=== PATIENT | female | born 1985 | race Caucasian/White ===

== ENCOUNTER 2019-07-28 11:32 | Emergency (ER) | payer OTHER, MEDICAID ==
[~2019-07-28] VITALS: Ht 170.2 cm; Wt 74.8 kg
[2019-07-28] MEDS ORDERED: BUTALB-APAP-CA1 EACH PO (13:37)
[2019-07-28 14:38] VITALS: BP 119/84
== END 2019-07-28 14:40 | disposition home or self-care (01) ==
LOC: M.ERS 11:32
DX: G43.009 Migraine without aura, not intractable, without status migrainosus (principal); M19.90 Unspecified osteoarthritis, unspecified site; F17.210 Nicotine dependence, cigarettes, uncomplicated

== ENCOUNTER 2019-08-13 10:52 | Emergency (ER) | payer OTHER, MEDICAID ==
[~2019-08-13] VITALS: Ht 170.2 cm; Wt 73.9 kg
[~2019-08-13 10:52] MED LIST: BUTALB-APAP-CA1 EACH PO
[2019-08-13 12:10] VITALS: BP 125/70
== END 2019-08-13 12:10 | disposition home or self-care (01) ==
LOC: M.ERS 10:52
DX: G43.909 Migraine, unspecified, not intractable, without status migrainosus (principal); M19.90 Unspecified osteoarthritis, unspecified site

== ENCOUNTER 2019-08-18 10:26 | Emergency (ER) | payer OTHER, MEDICAID ==
[~2019-08-18] VITALS: Ht 170.2 cm; Wt 73.9 kg
[2019-08-18] MEDS ORDERED: NAPROSYN500 MG PO (11:50)
[2019-08-18] MEDS ORDERED: NORCO 5-325 TA1 EAC1 PO (11:50)
[2019-08-18] MEDS ORDERED: MEDROLDOSEPACK PO (11:50)
[2019-08-18 12:03] VITALS: BP 132/80
== END 2019-08-18 12:04 | disposition home or self-care (01) ==
LOC: M.ERS 10:26
DX: M54.12 Radiculopathy, cervical region (principal); G89.29 Other chronic pain; M19.90 Unspecified osteoarthritis, unspecified site; G43.909 Migraine, unspecified, not intractable, without status migrainosus; F17.200 Nicotine dependence, unspecified, uncomplicated; Z85.42 Personal history of malignant neoplasm of other parts of uterus; Z90.710 Acquired absence of both cervix and uterus

== ENCOUNTER 2019-08-25 11:39 | Emergency (ER) | payer OTHER, MEDICAID ==
[~2019-08-25] VITALS: Ht 170.2 cm; Wt 74.8 kg
[~2019-08-25 11:39] MED LIST changes: +MEDROLDOSEPACK PO; +NAPROSYN500 MG PO; +NORCO 5-325 TA1 EAC1 PO
[2019-08-25] MEDS ORDERED: MOBIC15 MG PO (12:03)
[2019-08-25] MEDS ORDERED: TRAMADOL 50 MG50 MG PO (12:03)
[2019-08-25 12:38] VITALS: BP 147/87
== END 2019-08-25 12:40 | disposition home or self-care (01) ==
LOC: M.ERS 11:39
DX: M54.2 Cervicalgia (principal); M19.90 Unspecified osteoarthritis, unspecified site; G43.909 Migraine, unspecified, not intractable, without status migrainosus; F17.210 Nicotine dependence, cigarettes, uncomplicated

== ENCOUNTER 2019-10-08 13:06 | Emergency (ER) | payer OTHER, MEDICAID ==
[~2019-10-08] VITALS: Ht 170.2 cm; Wt 74.8 kg
[~2019-10-08 13:06] MED LIST changes: +MOBIC15 MG PO; +TRAMADOL 50 MG50 MG PO
[2019-10-08] MEDS ORDERED: BUTALB-APAP-CA1 EACH PO (14:27)
[2019-10-08 15:00] VITALS: BP 125/70
== END 2019-10-08 15:01 | disposition home or self-care (01) ==
LOC: M.ERS 13:06
DX: G43.909 Migraine, unspecified, not intractable, without status migrainosus (principal); M19.90 Unspecified osteoarthritis, unspecified site; Z88.6 Allergy status to analgesic agent

== ENCOUNTER 2019-11-04 10:05 | Emergency (ER) | payer OTHER, MEDICAID ==
[~2019-11-04] VITALS: Ht 170.2 cm; Wt 74.8 kg
[2019-11-04] MEDS ORDERED: FLEXERIL PO (10:24)
[2019-11-04 10:29] VITALS: BP 121/64
== END 2019-11-04 10:29 | disposition home or self-care (01) ==
LOC: M.ERS 10:05
DX: M54.5 Low back pain (principal); M79.18 Myalgia, other site; M19.90 Unspecified osteoarthritis, unspecified site; G43.909 Migraine, unspecified, not intractable, without status migrainosus; Z90.711 Acquired absence of uterus with remaining cervical stump; Z88.6 Allergy status to analgesic agent; Z85.42 Personal history of malignant neoplasm of other parts of uterus

== ENCOUNTER 2019-12-02 18:15 | Emergency (ER) | payer OTHER, MEDICAID ==
[~2019-12-02] VITALS: Ht 170.2 cm; Wt 72.6 kg
[~2019-12-02 18:15] MED LIST changes: +FLEXERIL PO
[2019-12-02 19:04] VITALS: BP 140/70
== END 2019-12-02 19:04 | disposition home or self-care (01) ==
LOC: M.ERS 18:15
DX: G43.909 Migraine, unspecified, not intractable, without status migrainosus (principal); M19.90 Unspecified osteoarthritis, unspecified site; Z85.42 Personal history of malignant neoplasm of other parts of uterus; Z88.6 Allergy status to analgesic agent

== ENCOUNTER 2019-12-15 18:07 | Emergency (ER) | payer OTHER, MEDICAID ==
[~2019-12-15] VITALS: Ht 170.2 cm; Wt 74.8 kg
[2019-12-15] MEDS ORDERED: BUTALB-APAP-CA1 EACH PO (18:39)
[2019-12-15 18:50] VITALS: BP 125/89
== END 2019-12-15 18:51 | disposition home or self-care (01) ==
LOC: M.ERS 18:07
DX: G43.909 Migraine, unspecified, not intractable, without status migrainosus (principal); M19.90 Unspecified osteoarthritis, unspecified site; Z85.42 Personal history of malignant neoplasm of other parts of uterus; Z90.711 Acquired absence of uterus with remaining cervical stump; Z88.6 Allergy status to analgesic agent

== ENCOUNTER 2019-12-22 17:48 | Emergency (ER) | payer OTHER, MEDICAID ==
[~2019-12-22] VITALS: Ht 170.2 cm; Wt 74.8 kg
[2019-12-22 18:36] VITALS: BP 128/70
== END 2019-12-22 18:36 | disposition home or self-care (01) ==
LOC: M.ERS 17:48
DX: T23.101A Burn of first degree of right hand, unspecified site, initial encounter (principal); G43.909 Migraine, unspecified, not intractable, without status migrainosus; M19.90 Unspecified osteoarthritis, unspecified site; Z90.711 Acquired absence of uterus with remaining cervical stump; Z85.42 Personal history of malignant neoplasm of other parts of uterus; Z88.6 Allergy status to analgesic agent; X10.2XXA Contact with fats and cooking oils, initial encounter; Y93.G3 Activity, cooking and baking; Y92.89 Other specified places as the place of occurrence of the external cause; Y99.8 Other external cause status

== ENCOUNTER 2020-02-22 16:54 | Emergency (ER) | payer MEDICAID ==
[~2020-02-22] VITALS: Ht 170.2 cm; Wt 72.6 kg
[2020-02-22] MEDS ORDERED: BUTALB-APAP-CA1 EACH PO (17:33)
[2020-02-22 18:02] VITALS: BP 110/68
== END 2020-02-22 18:02 | disposition home or self-care (01) ==
LOC: M.ERS 16:54
DX: G43.009 Migraine without aura, not intractable, without status migrainosus (principal); M19.90 Unspecified osteoarthritis, unspecified site; F17.210 Nicotine dependence, cigarettes, uncomplicated; Z88.6 Allergy status to analgesic agent; Z85.42 Personal history of malignant neoplasm of other parts of uterus; Z90.711 Acquired absence of uterus with remaining cervical stump

== ENCOUNTER 2020-04-05 12:39 | Emergency (ER) | payer OTHER, MEDICAID ==
[~2020-04-05] VITALS: Ht 170.2 cm; Wt 73.9 kg
[2020-04-05] MEDS ORDERED: BUTALB-APAP-CA1 EACH PO (13:09)
[2020-04-05 13:25] VITALS: BP 128/72
== END 2020-04-05 13:26 | disposition home or self-care (01) ==
LOC: M.ERS 12:39
DX: G43.909 Migraine, unspecified, not intractable, without status migrainosus (principal); M19.90 Unspecified osteoarthritis, unspecified site; F17.210 Nicotine dependence, cigarettes, uncomplicated; Z90.711 Acquired absence of uterus with remaining cervical stump; Z85.42 Personal history of malignant neoplasm of other parts of uterus; Z88.6 Allergy status to analgesic agent

== ENCOUNTER 2020-04-09 23:00 | Emergency (ER) | payer OTHER, MEDICAID ==
[~2020-04-09] VITALS: Ht 170.2 cm; Wt 72.6 kg
[2020-04-10] MEDS ORDERED: HYDROCODON-ACE1 EAC8 PO (00:24)
[2020-04-10] MEDS ORDERED: FLEXERIL PO (00:24)
[2020-04-10 00:41] VITALS: BP 103/69
== END 2020-04-10 00:43 | disposition home or self-care (01) ==
LOC: M.ERS 23:00
DX: M54.5 Low back pain (principal); M79.18 Myalgia, other site; M19.90 Unspecified osteoarthritis, unspecified site; G43.909 Migraine, unspecified, not intractable, without status migrainosus; Z90.711 Acquired absence of uterus with remaining cervical stump; Z88.6 Allergy status to analgesic agent; Z85.41 Personal history of malignant neoplasm of cervix uteri

== ENCOUNTER 2020-04-22 13:59 | Emergency (ER) | payer OTHER, MEDICAID ==
[~2020-04-22] VITALS: Ht 167.6 cm; Wt 74.8 kg
[~2020-04-22 13:59] MED LIST changes: +HYDROCODON-ACE1 EAC8 PO
[2020-04-22 15:41] VITALS: BP 119/84
== END 2020-04-22 15:42 | disposition home or self-care (01) ==
LOC: M.ERS 13:59
DX: G43.909 Migraine, unspecified, not intractable, without status migrainosus (principal); M19.90 Unspecified osteoarthritis, unspecified site; Z88.6 Allergy status to analgesic agent

== ENCOUNTER 2020-05-02 03:31 | Emergency (ER) | payer OTHER, MEDICAID ==
[~2020-05-02] VITALS: Ht 170.2 cm; Wt 77.1 kg
[2020-05-02 03:37] VITALS: BP 141/85
[2020-05-02] MEDS ORDERED: TOPAMAX100 MG PO (03:39)
[2020-05-02] MEDS ORDERED: DESYREL150 MG PO (03:39)
[2020-05-02] MEDS ORDERED: NORCO 5-325 TA1 EAC2 PO (03:51)
[2020-05-02] MEDS ORDERED: AMOXICILLIN 50500 MG PO (03:51)
[2020-05-02] MEDS ORDERED: CORTISPORIN OTI10 M2 OTIC (03:51)
== END 2020-05-02 03:57 | disposition home or self-care (01) ==
LOC: M.ERS 03:31
DX: H66.92 Otitis media, unspecified, left ear (principal); M19.90 Unspecified osteoarthritis, unspecified site; G43.909 Migraine, unspecified, not intractable, without status migrainosus; Z88.6 Allergy status to analgesic agent

== ENCOUNTER 2020-07-21 19:49 | Emergency (ER) | payer OTHER, MEDICAID ==
[~2020-07-21] VITALS: Ht 170.2 cm; Wt 81.7 kg
[~2020-07-21 19:49] MED LIST changes: +AMOXICILLIN 50500 MG PO; +CORTISPORIN OTI10 M2 OTIC; +DESYREL150 MG PO; +NORCO 5-325 TA1 EAC2 PO; +TOPAMAX100 MG PO
[2020-07-21] MEDS ORDERED: TORADOL 10 MG T10 MG PO (21:54)
[2020-07-21] MEDS ORDERED: NORFLEX100 MG PO (21:54)
[2020-07-21 22:31] VITALS: BP 157/82
[2020-07-22] MEDS ORDERED: HYDROCODON-ACE1 EAC7 PO (17:57)
== END 2020-07-21 22:31 | disposition home or self-care (01) ==
LOC: M.ERS 19:49
DX: S46.811A Strain of other muscles, fascia and tendons at shoulder and upper arm level, right arm, initial encounter (principal); G43.909 Migraine, unspecified, not intractable, without status migrainosus; M19.90 Unspecified osteoarthritis, unspecified site; Z88.6 Allergy status to analgesic agent; X50.0XXA Overexertion from strenuous movement or load, initial encounter; Y93.89 Activity, other specified; Y92.89 Other specified places as the place of occurrence of the external cause; Y99.9 Unspecified external cause status

== ENCOUNTER 2020-10-09 06:01 | Emergency (ER) | payer OTHER, MEDICAID ==
[~2020-10-09] VITALS: Ht 170.2 cm; Wt 81.7 kg
[~2020-10-09 06:01] MED LIST changes: +HYDROCODON-ACE1 EAC7 PO; +NORFLEX100 MG PO; +TORADOL 10 MG T10 MG PO
[2020-10-09 06:54] LABS: INFLUENZA A ANTIGEN Negative (Negative); INFLUENZA B ANTIGEN Negative (Negative)
[2020-10-09] MEDS ORDERED: PREDNISONE50 MG PO (07:10)
[2020-10-09] MEDS ORDERED: AUGMENTIN 500-1 EACH PO (07:10)
[2020-10-09] MEDS ORDERED: MUCUS-ER MAX1200 MG PO (07:10)
[2020-10-09] MEDS ORDERED: PROAIR HFA8.5 GM INH (07:12)
[2020-10-09 07:40] VITALS: BP 131/74
== END 2020-10-09 07:41 | disposition home or self-care (01) ==
LOC: M.ERS 06:01
PROVIDERS: Personal Emergency Response Attendant
DX: J40 Bronchitis, not specified as acute or chronic (principal); Z20.822 Contact with and (suspected) exposure to COVID-19; M19.90 Unspecified osteoarthritis, unspecified site; G43.909 Migraine, unspecified, not intractable, without status migrainosus; Z85.42 Personal history of malignant neoplasm of other parts of uterus; Z88.6 Allergy status to analgesic agent; Z90.711 Acquired absence of uterus with remaining cervical stump

== ENCOUNTER 2020-10-22 07:44 | Emergency (ER) | payer OTHER, MEDICAID ==
[~2020-10-22] VITALS: Ht 170.2 cm; Wt 81.7 kg
[~2020-10-22 07:44] MED LIST changes: +AUGMENTIN 500-1 EACH PO; +MUCUS-ER MAX1200 MG PO; +PREDNISONE50 MG PO; +PROAIR HFA8.5 GM INH
[2020-10-22] MEDS ORDERED: HYDROCODON-ACE1 EAC7 PO (08:59)
[2020-10-22] MEDS ORDERED: FLEXERIL PO (08:59)
[2020-10-22 09:09] VITALS: BP 114/64
== END 2020-10-22 09:10 | disposition home or self-care (01) ==
LOC: M.ERS 07:44
DX: S30.0XXA Contusion of lower back and pelvis, initial encounter (principal); S20.229A Contusion of unspecified back wall of thorax, initial encounter; M19.90 Unspecified osteoarthritis, unspecified site; G43.909 Migraine, unspecified, not intractable, without status migrainosus; Z90.711 Acquired absence of uterus with remaining cervical stump; Z85.42 Personal history of malignant neoplasm of other parts of uterus; Z88.6 Allergy status to analgesic agent; W01.0XXA Fall on same level from slipping, tripping and stumbling without subsequent striking against object, initial encounter; Y93.89 Activity, other specified; Y92.89 Other specified places as the place of occurrence of the external cause; Y99.8 Other external cause status

== ENCOUNTER 2020-11-14 09:49 | Emergency (ER) | payer OTHER, MEDICAID ==
[~2020-11-14] VITALS: Ht 170.2 cm; Wt 81.7 kg
[2020-11-14 10:42] LABS: URINE BILIRUBIN NEGATIVE (Negative); URINE BLOOD NEGATIVE (Negative); URINE CLARITY CLEAR; URINE COLOR YELLOW; URINE GLUCOSE-RANDOM NEGATIVE (Negative); URINE KETONES NEGATIVE (Negative); URINE LEUKOCYTES-REFLEX NEGATIVE (Negative); URINE NITRITE-REFLEX NEGATIVE (Negative); URINE PROTEIN NEGATIVE (Negative)
[2020-11-14] MEDS ORDERED: APAP W/CODEINE1 TA2 PO (10:47)
[2020-11-14] MEDS ORDERED: NAPROSYN500 MG PO (10:47)
[2020-11-14] MEDS ORDERED: PREDNISONE 20 M20 MG PO (10:47)
[2020-11-14 10:59] VITALS: BP 118/72
== END 2020-11-14 11:00 | disposition home or self-care (01) ==
LOC: M.ERS 09:49
PROVIDERS: Physician Assistant
DX: S30.0XXA Contusion of lower back and pelvis, initial encounter (principal); G43.909 Migraine, unspecified, not intractable, without status migrainosus; M47.812 Spondylosis without myelopathy or radiculopathy, cervical region; M47.816 Spondylosis without myelopathy or radiculopathy, lumbar region; Z96.22 Myringotomy tube(s) status; Z90.711 Acquired absence of uterus with remaining cervical stump; Z85.42 Personal history of malignant neoplasm of other parts of uterus; Z79.899 Other long term (current) drug therapy; Z88.8 Allergy status to other drugs, medicaments and biological substances; W01.0XXA Fall on same level from slipping, tripping and stumbling without subsequent striking against object, initial encounter; Y93.89 Activity, other specified; Y92.89 Other specified places as the place of occurrence of the external cause; Y99.8 Other external cause status

== ENCOUNTER 2020-11-19 05:34 | Emergency (ER) | payer OTHER, MEDICAID ==
[~2020-11-19] VITALS: Ht 170.2 cm; Wt 81.7 kg
[~2020-11-19 05:34] MED LIST changes: +APAP W/CODEINE1 TA2 PO; +PREDNISONE 20 M20 MG PO
[2020-11-19 06:08] LABS: HEMATOCRIT 42.2 % (37.0-47.0); HEMOGLOBIN 13.9 gm/dL (12.0-15.0); MCH 31.2 pg (26.0-34.0); MCHC 32.8 g/dL (28.0-37.0); MCV 95.1 fL (80.0-100.0); MPV 9.4 fl. (7.2-11.1); NUCLEATED RBCS 0 /100WBC; PLATELET COUNT* 235 thou/uL (150-400); RBC 4.44 mil/uL (4.20-5.00); RDW-CV 13.5 % (10.5-14.5); WBC 16.4 thou/uL (4.0-11.0)
[2020-11-19 06:16] LABS: CALCIUM 8.5 mg/dL (8.5-10.1); CREATININE 0.9 mg/dL (0.6-1.3); POTASSIUM 4.4 mmol/L (3.5-5.1)
[2020-11-19 06:20] LABS: ALBUMIN 3.6 g/dL (3.4-5.0); MAGNESIUM 2.1 mg/dL (1.8-2.4); TOTAL BILIRUBIN 0.3 mg/dL (<0.1-1.0); TOTAL PROTEIN 6.9 g/dL (6.4-8.2)
[2020-11-19 08:02] LABS: ABSOLUTE MONOCYTES 0.5 thou/uL (0.0-1.2); ABSOLUTE NEUTROPHILS 14.9 thou/uL (1.6-8.1); PLATELET ESTIMATE ADEQUATE
[2020-11-19 08:13] LABS: URINE BILIRUBIN NEGATIVE (Negative); URINE BLOOD TRACE (Negative); URINE CLARITY CLEAR; URINE COLOR YELLOW; URINE GLUCOSE-RANDOM NEGATIVE (Negative); URINE KETONES NEGATIVE (Negative); URINE LEUKOCYTES-REFLEX NEGATIVE (Negative); URINE NITRITE-REFLEX NEGATIVE (Negative); URINE PROTEIN NEGATIVE (Negative); URINE UROBILINOGEN 0.2 E.U./dl (0.2-1.0)
[2020-11-19 08:20] VITALS: BP 108/66
[2020-11-19] MEDS ORDERED: CIPROFLOXACIN500 M1 PO (08:20)
== END 2020-11-19 08:20 | disposition home or self-care (01) ==
LOC: M.ERS 05:34
PROVIDERS: Emergency Medicine
DX: R19.7 Diarrhea, unspecified (principal); R10.31 Right lower quadrant pain; R10.32 Left lower quadrant pain; G43.909 Migraine, unspecified, not intractable, without status migrainosus; Z88.6 Allergy status to analgesic agent; Z79.899 Other long term (current) drug therapy

== ENCOUNTER 2020-12-13 17:30 | Emergency (ER) | payer OTHER, MEDICAID ==
[~2020-12-13] VITALS: Ht 170.2 cm; Wt 77.1 kg
[~2020-12-13 17:30] MED LIST changes: +CIPROFLOXACIN500 M1 PO
[2020-12-13] MEDS ORDERED: GABAPENTIN800 M1 PO (17:44)
[2020-12-13 19:27] VITALS: BP 102/64
== END 2020-12-13 19:27 | disposition home or self-care (01) ==
LOC: M.ERS 17:30
DX: M25.561 Pain in right knee (principal); G43.909 Migraine, unspecified, not intractable, without status migrainosus; M19.90 Unspecified osteoarthritis, unspecified site; Z85.42 Personal history of malignant neoplasm of other parts of uterus; Z88.6 Allergy status to analgesic agent

== ENCOUNTER 2020-12-28 20:55 | Emergency (ER) | payer OTHER, MEDICAID ==
[~2020-12-28] VITALS: Ht 170.2 cm; Wt 74.8 kg
[~2020-12-28 20:55] MED LIST changes: +GABAPENTIN800 M1 PO
[2020-12-28] MEDS ORDERED: TORADOL 10 MG T10 MG PO (22:34)
[2020-12-28] MEDS ORDERED: NORFLEX100 MG PO (22:34)
[2020-12-28 22:54] VITALS: BP 97/36
== END 2020-12-28 22:54 | disposition home or self-care (01) ==
LOC: M.ERS 20:55
DX: M43.6 Torticollis (principal); M19.90 Unspecified osteoarthritis, unspecified site; G43.909 Migraine, unspecified, not intractable, without status migrainosus; F17.210 Nicotine dependence, cigarettes, uncomplicated; Z85.42 Personal history of malignant neoplasm of other parts of uterus; Z88.6 Allergy status to analgesic agent

== ENCOUNTER 2021-01-03 12:42 | Emergency (ER) | payer OTHER, MEDICAID ==
[~2021-01-03] VITALS: Ht 170.2 cm; Wt 74.8 kg
[2021-01-03] MEDS ORDERED: VISTARIL 25 MG25 M1 PO (15:15)
[2021-01-03 15:32] VITALS: BP 110/57
== END 2021-01-03 15:33 | disposition home or self-care (01) ==
LOC: M.ERS 12:42
DX: F41.9 Anxiety disorder, unspecified (principal); M19.90 Unspecified osteoarthritis, unspecified site; G43.909 Migraine, unspecified, not intractable, without status migrainosus; Z85.42 Personal history of malignant neoplasm of other parts of uterus; Z88.6 Allergy status to analgesic agent; Z90.711 Acquired absence of uterus with remaining cervical stump

== ENCOUNTER 2021-01-14 10:02 | Emergency (ER) | payer OTHER, MEDICAID ==
[~2021-01-14] VITALS: Ht 170.2 cm; Wt 74.8 kg
[~2021-01-14 10:02] MED LIST changes: +VISTARIL 25 MG25 M1 PO
[2021-01-14 10:37] LABS: HEMATOCRIT 40.4 % (37.0-47.0); HEMOGLOBIN 13.9 gm/dL (12.0-15.0); MCH 31.7 pg (26.0-34.0); MCHC 34.4 g/dL (28.0-37.0); MCV 92.1 fL (80.0-100.0); MPV 8.5 fl. (7.2-11.1); NUCLEATED RBCS 0 /100WBC; PLATELET COUNT* 303 thou/uL (150-400); RBC 4.39 mil/uL (4.20-5.00); RDW-CV 13.4 % (10.5-14.5); WBC 14.9 thou/uL (4.0-11.0)
[2021-01-14 10:45] LABS: CALCIUM 8.8 mg/dL (8.5-10.1); CREATININE 0.9 mg/dL (0.6-1.3); POTASSIUM 3.1 mmol/L (3.5-5.1)
[2021-01-14 10:50] LABS: ALBUMIN 3.6 g/dL (3.4-5.0); TOTAL BILIRUBIN 0.5 mg/dL (<0.1-1.0); TOTAL PROTEIN 7.1 g/dL (6.4-8.2)
[2021-01-14 11:02] LABS: ABSOLUTE LYMPHOCYTES 1.6 thou/uL (0.8-5.3); ABSOLUTE MONOCYTES 0.4 thou/uL (0.0-1.2); ABSOLUTE NEUTROPHILS 12.8 thou/uL (1.6-8.1); PLATELET ESTIMATE ADEQUATE
[2021-01-14 11:03] LABS: ANISOCYTOSIS 1+; POIKILOCYTOSIS 1+
[2021-01-14 12:21] LABS: URINE BLOOD 3+ (Negative); URINE CLARITY SL CLOUDY; URINE COLOR YELLOW; URINE GLUCOSE-RANDOM NEGATIVE (Negative); URINE KETONES 2+ (Negative); URINE LEUKOCYTES-REFLEX TRACE (Negative); URINE NITRITE-REFLEX NEGATIVE (Negative); URINE PROTEIN TRACE (Negative); URINE UROBILINOGEN 0.2 E.U./dl (0.2-1.0)
[2021-01-14] MEDS ORDERED: ONDANSETRON HCL4 M2 PO (12:22)
[2021-01-14 12:25] LABS: ICTOTEST (BILI CONFIRMATORY) Negative (Negative); URINE BILIRUBIN 1+ (Negative)
[2021-01-14 12:34] LABS: CASTS None Seen /LPF (None Seen); CRYSTALS None Seen /LPF (None Seen); MUCUS >6 Heavy strn/LPF (None Seen); SQUAMOUS 0-3 Few /LPF (0-3); URINE RBC 3-10 Few /HPF (0-2); URINE WBC-REFLEX 0-5 Rare /HPF (0-5)
[2021-01-14 12:43] VITALS: BP 98/65
--- NOTE | 2021-01-14 16:40 | EKG ---
[place] [address] ELECTROCARDIOGRAM REPORT Name: BILLIE RAMOS Room: [facility]#: [id number] Admission: 01/14/21 Attend Phys: Discharge: 01/14/21 Date of : 87 Date of Service: 01/14/21 1045 Report #: [id number] THIS REPORT FOR: //name// [facility] ED Test Date: 2021-01-14 Test Time: 10:45:48 Pat Name: BILLIE RAMOS Department: Room: Gender: F [employer]: PAN : 1985 Requested By: Violeta Brown Order Number: [id number] MD: Saurabh Olivares Measurements Intervals [place] Rate: 61 P: 36 GA: 161 QRS: 64 QRSD: 90 T: 55 QT: 454 QTc: 458 Interpretive Statements Sinus rhythm No previous ECG available for comparison Electronically Signed On 01-14-2021 16:39:59 CDT by Saurabh Olivares [email or web address] <ELECTRONICALLY SIGNED> By: Saurabh Olivares MD, [facility] 01/14/21 1639 1045 1045 Saurabh Olivares MD, FAC /EPI
== END 2021-01-14 12:44 | disposition home or self-care (01) ==
LOC: M.ERS 10:02
PROVIDERS: Nurse Practitioner Family
DX: R11.2 Nausea with vomiting, unspecified (principal); M19.90 Unspecified osteoarthritis, unspecified site; G43.909 Migraine, unspecified, not intractable, without status migrainosus; F17.210 Nicotine dependence, cigarettes, uncomplicated; Z85.42 Personal history of malignant neoplasm of other parts of uterus; Z88.6 Allergy status to analgesic agent; Z79.899 Other long term (current) drug therapy

== ENCOUNTER 2021-04-08 16:22 | Emergency (ER) | payer OTHER, MEDICAID ==
[~2021-04-08] VITALS: Ht 170.2 cm; Wt 74.8 kg
[~2021-04-08 16:22] MED LIST changes: +ONDANSETRON HCL4 M2 PO
[2021-04-08] MEDS ORDERED: HYDROCODON-ACE1 EAC7 PO (16:47)
[2021-04-08] MEDS ORDERED: MEDROLDOSEPACK PO (16:47)
[2021-04-08 17:01] VITALS: BP 129/80
== END 2021-04-08 17:01 | disposition home or self-care (01) ==
LOC: M.ERS 16:22
DX: G89.29 Other chronic pain (principal); M54.5 Low back pain; M19.90 Unspecified osteoarthritis, unspecified site; G43.909 Migraine, unspecified, not intractable, without status migrainosus; Z90.711 Acquired absence of uterus with remaining cervical stump; Z79.891 Long term (current) use of opiate analgesic; Z79.1 Long term (current) use of non-steroidal anti-inflammatories (NSAID); Z79.899 Other long term (current) drug therapy; Z88.6 Allergy status to analgesic agent

== ENCOUNTER 2021-04-18 09:25 | Emergency (ER) | payer OTHER, MEDICAID ==
[~2021-04-18] VITALS: Ht 170.2 cm; Wt 72.6 kg
[2021-04-18 09:35] VITALS: BP 112/68
[2021-04-18] MEDS ORDERED: ZPAK PO (10:44)
[2021-04-18] MEDS ORDERED: MEDROLDOSEPACK PO (10:44)
== END 2021-04-18 10:51 | disposition home or self-care (01) ==
LOC: M.ERS 09:25
DX: J20.9 Acute bronchitis, unspecified (principal); G43.909 Migraine, unspecified, not intractable, without status migrainosus; Z88.6 Allergy status to analgesic agent

== ENCOUNTER 2021-04-21 19:40 | Emergency (ER) | payer OTHER, MEDICAID ==
[~2021-04-21] VITALS: Ht 170.2 cm; Wt 72.6 kg
[~2021-04-21 19:40] MED LIST changes: +ZPAK PO
[2021-04-21 20:34] LABS: ABSOLUTE BASOPHILS 0.1 thou/uL (0.0-0.2); ABSOLUTE EOSINOPHILS 0.1 thou/uL (0.0-0.7); ABSOLUTE LYMPHOCYTES 3.2 thou/uL (0.8-5.3); ABSOLUTE MONOCYTES 0.9 thou/uL (0.0-1.2); ABSOLUTE NEUTROPHILS 7.8 thou/uL (1.6-8.1); BASOPHILS 0.7 %; EOSINOPHILS 1.1 %; HEMATOCRIT 36.2 % (37.0-47.0); HEMOGLOBIN 12.1 gm/dL (12.0-15.0); LYMPHOCYTES 26.3 %; MCH 31.2 pg (26.0-34.0); MCHC 33.5 g/dL (28.0-37.0); MCV 93.3 fL (80.0-100.0); MONOCYTES 7.2 %; MPV 8.8 fl. (7.2-11.1); NUCLEATED RBCS 0 /100WBC; PLATELET COUNT* 229 thou/uL (150-400); POLYS 64.7 %; RBC 3.88 mil/uL (4.20-5.00); RDW-CV 13.6 % (10.5-14.5)
[2021-04-21 20:42] LABS: CALCIUM 8.4 mg/dL (8.5-10.1); CREATININE 0.9 mg/dL (0.6-1.3); POTASSIUM 3.2 mmol/L (3.5-5.1)
[2021-04-21] MEDS ORDERED: COMBIVENT RESPIM4 GM IH (21:48)
[2021-04-21] MEDS ORDERED: ADVAIR 250-501 EACH INH (22:06)
[2021-04-21 22:14] VITALS: BP 115/70
--- NOTE | 2021-04-22 11:35 | EKG ---
[place] [address] ELECTROCARDIOGRAM REPORT Name: BILLIE RAMOS JACOB Room: [facility]#: [id number] Admission: 04/21/21 Attend Phys: Discharge: 04/21/21 Date of : 87 Date of Service: 04/21/211945 Report #: [id number] THIS REPORT FOR: //name// [facility] ED Test Date: 2021-04-21 Test Time: 19:46:18 Pat Name: BILLIE RAMOS Department: Room: Gender: F [employer] Maker: : 1985 Requested By: Violeta Brown Order Number: [id number] MD: Benjie Gomez Measurements Intervals [place] Rate: 77 P: 75 PA: 196 QRS: 74 QRSD: 89 T: 67 QT: 377 QTc: 427 Interpretive Statements Sinus rhythm Compared to ECG 01/14/2021 10:45:48 No significant changes Electronically Signed On 04-22-2021 11:34:58 CDT by Benjie Gomez [email or web address] <ELECTRONICALLY SIGNED> By: Benjie Gomez MD, FAC 04/22/21 1134 45 45 Benjie Gomez MD, [facility] /EPI
== END 2021-04-21 22:15 | disposition home or self-care (01) ==
LOC: M.ERS 19:40
PROVIDERS: Nurse Practitioner Family
DX: B34.9 Viral infection, unspecified (principal); Z20.822 Contact with and (suspected) exposure to COVID-19; J20.9 Acute bronchitis, unspecified; M19.90 Unspecified osteoarthritis, unspecified site; G43.909 Migraine, unspecified, not intractable, without status migrainosus; Z90.711 Acquired absence of uterus with remaining cervical stump; Z79.899 Other long term (current) drug therapy; Z88.5 Allergy status to narcotic agent

== ENCOUNTER 2021-05-13 13:53 | Emergency (ER) | payer OTHER, MEDICAID ==
[~2021-05-13] VITALS: Ht 170.2 cm; Wt 70.3 kg
[~2021-05-13 13:53] MED LIST changes: +ADVAIR 250-501 EACH INH; +COMBIVENT RESPIM4 GM IH
[2021-05-13] MEDS ORDERED: CEPHALEXIN500 MG PO (14:54)
[2021-05-13 15:05] VITALS: BP 125/74
== END 2021-05-13 15:06 | disposition home or self-care (01) ==
LOC: M.ERS 13:53
DX: S61.212A Laceration without foreign body of right middle finger without damage to nail, initial encounter (principal); M47.812 Spondylosis without myelopathy or radiculopathy, cervical region; M47.816 Spondylosis without myelopathy or radiculopathy, lumbar region; G43.909 Migraine, unspecified, not intractable, without status migrainosus; Z85.42 Personal history of malignant neoplasm of other parts of uterus; Z85.89 Personal history of malignant neoplasm of other organs and systems; Z79.899 Other long term (current) drug therapy; Z79.2 Long term (current) use of antibiotics; Z88.8 Allergy status to other drugs, medicaments and biological substances; W26.0XXA Contact with knife, initial encounter; Y93.89 Activity, other specified; Y92.89 Other specified places as the place of occurrence of the external cause; Y99.8 Other external cause status

== ENCOUNTER 2021-05-23 09:38 | Emergency (ER) | payer OTHER, MEDICAID ==
[~2021-05-23] VITALS: Ht 170.2 cm; Wt 72.6 kg
[~2021-05-23 09:38] MED LIST changes: +CEPHALEXIN500 MG PO
[2021-05-23 09:48] VITALS: BP 108/65
[2021-05-23] MEDS ORDERED: DOXYCYCLINE 10100 M2 PO (10:20)
== END 2021-05-23 10:28 | disposition home or self-care (01) ==
LOC: M.ERS 09:38
DX: S61.212D Laceration without foreign body of right middle finger without damage to nail, subsequent encounter (principal); M19.90 Unspecified osteoarthritis, unspecified site; G43.909 Migraine, unspecified, not intractable, without status migrainosus; Z48.02 Encounter for removal of sutures; Z79.899 Other long term (current) drug therapy; Z88.5 Allergy status to narcotic agent; X58.XXXD Exposure to other specified factors, subsequent encounter

== ENCOUNTER 2021-09-08 14:41 | Emergency (ER) | payer OTHER, MEDICAID ==
[~2021-09-08] VITALS: Ht 170.2 cm; Wt 68.0 kg
[~2021-09-08 14:41] MED LIST changes: +DOXYCYCLINE 10100 M2 PO
[2021-09-08 15:05] LABS: ABSOLUTE EOSINOPHILS 0.1 thou/uL (0.0-0.7); ABSOLUTE LYMPHOCYTES 2.2 thou/uL (0.8-5.3); ABSOLUTE MONOCYTES 0.4 thou/uL (0.0-1.2); ABSOLUTE NEUTROPHILS 5.5 thou/uL (1.6-8.1); BASOPHILS 0.5 %; EOSINOPHILS 0.9 %; HEMATOCRIT 39.5 % (37.0-47.0); HEMOGLOBIN 13.1 gm/dL (12.0-15.0); LYMPHOCYTES 26.8 %; MCH 31.1 pg (26.0-34.0); MCHC 33.2 g/dL (28.0-37.0); MCV 93.5 fL (80.0-100.0); MONOCYTES 5.4 %; MPV 8.6 fl. (7.2-11.1); NUCLEATED RBCS 0 /100WBC; PLATELET COUNT* 238 thou/uL (150-400); POLYS 66.4 %; RBC 4.22 mil/uL (4.20-5.00); RDW-CV 13.4 % (10.5-14.5); WBC 8.2 thou/uL (4.0-11.0)
--- NOTE | 2021-09-08 15:08 | EKG ---
[place] [address] ELECTROCARDIOGRAM REPORT Name: BILLIE RAMOS JACOB Room: [facility]#: [id number] Admission: 09/08/21 Attend Phys: Discharge: Date of : 87 Date of Service: 09/08/21 1451 Report #: [id number] THIS REPORT FOR: //name// [facility] ED Test Date: 2021-09-08 Test Time: 14:51:12 Pat Name: BILLIE RAMOS Department: Room: Gender: Club Former: TO : 1985 Requested By: Ara Stroud Order Number: [id number] MD: Benjie Gomez Measurements Intervals [place] Rate: 52 P: 6 [place]: 179 QRS: 42 QRSD: 97 T: 17 QT: 431 QTc: 401 Interpretive Statements Sinus bradycarida Probable anteroseptal infarct, old Compared to ECG 04/21/2021 19:46:18 rate has slowed Electronically Signed On 09-08-2021 15:07:40 BENEFITS COORDINATOR by Benjie Gomez [email or web address] <ELECTRONICALLY SIGNED> By: Benjie Gomez MD, [facility] 09/08/21 1507 1451 1451 Benjie Gomez MD, [facility] /EPI
[2021-09-08 15:09] LABS: CREATININE 0.8 mg/dL (0.6-1.3); POTASSIUM 3.5 mmol/L (3.5-5.1)
[2021-09-08 15:14] LABS: ALBUMIN 3.7 g/dL (3.4-5.0); TOTAL BILIRUBIN 0.5 mg/dL (<0.1-1.0); TOTAL PROTEIN 6.8 g/dL (6.4-8.2)
[2021-09-08] MEDS ORDERED: DOXYCYCLINE 10100 MG PO (16:44)
[2021-09-08 17:03] VITALS: BP 120/77
== END 2021-09-08 17:03 | disposition home or self-care (01) ==
LOC: M.ERS 14:41
PROVIDERS: Student in an Organized Health Care Education/Training Program
DX: J18.9 Pneumonia, unspecified organism (principal); M19.90 Unspecified osteoarthritis, unspecified site; G43.909 Migraine, unspecified, not intractable, without status migrainosus; Z96.22 Myringotomy tube(s) status; Z85.42 Personal history of malignant neoplasm of other parts of uterus; Z90.711 Acquired absence of uterus with remaining cervical stump; Z79.899 Other long term (current) drug therapy; Z79.2 Long term (current) use of antibiotics; Z88.8 Allergy status to other drugs, medicaments and biological substances